=== PATIENT | female | born 1995 | race Caucasian/White ===

== ENCOUNTER 2019-05-11 13:13 | Emergency (ER) | payer OTHER ==
--- NOTE | 2019-05-11 13:26 | ER Report ---
History and Physical Time Seen By MD: 13:23 HPI/ROS CHIEF COMPLAINT: Shortness of breath, overheating, passing out HISTORY OF PRESENT ILLNESS: 23-year-old female patient presents to emergency room with complaint of shortness of breath, overheating and passing out. Patient states that this also start yesterday. She states she had several episodes of emesis yesterday. She states that she has not had any diarrhea. She states she was not able to eat anything yesterday, however today she's been able to keep fluids down. She states she been really lightheaded and she is moving around. She states she has had some shortness of breath. She said shortness breath with all activity, including lying down. Patient states that there is no possibility of , as she is currently in a homosexual relationship, she denies any control usage. Patient does have pain to bilateral size of the abdomen. REVIEW OF SYSTEMS: Respiratory: No cough, no dyspnea. Cardiovascular: No chest pain, no palpitations. Gastrointestinal: As noted above Musculoskeletal: No back pain. Allergies: Coded Allergies: amoxicillin (Verified Allergy, Severe, ANAPHYLAXIS, 05/11/19) Uncoded Allergies: Pencillins (Allergy, Severe, Anaphylaxis, 05/11/19) Home Meds Active Scripts Doxycycline Hyclate (DOXYCYCLINE HYCLATE) 100 Mg Tablet, 100 MG PO BID, #14 TAB Prov:JEANNINE SUERO 05/11/19 Past Medical/Surgical History Patient denies a pertinent medical or surgical history. Reviewed Nurses Notes: Yes Constitutional Vital Sign - Last 24 Hours 05/11/19 05/11/19 05/11/19 05/11/19 13:21 13:24 13:30 14:00 Temp 98.1 Pulse 57 Resp 16 B/P (MAP) 133/74 (93) 133/74 114/81 (92) 118/67 (84) Pulse Ox 95 O2 Delivery Room Air 05/11/19 05/11/19 05/11/19 05/11/19 14:13 14:30 14:35 15:00 Pulse 52 50 Resp 11 8 B/P (MAP) 114/52 (72) 108/55 (72) Pulse Ox 94 93 05/11/19 05/11/19 05/11/19 05/11/19 15:05 15:10 15:15 15:20 Pulse 53 54 52 56 Resp 14 18 25 16 Pulse Ox 94 94 94 97 05/11/19 05/11/19 05/11/19 05/11/19 15:25 15:30 15:35 15:40 Pulse 50 53 53 48 Resp 22 23 19 14 B/P (MAP) 85/37 (53) Pulse Ox 97 95 95 96 05/11/19 16:16 Pulse 85 Resp 16 B/P (MAP) 115/72 (86) Pulse Ox 92 O2 Delivery Room Air Physical Exam General Appearance: The patient is alert, has no immediate need for airway protection and no current signs of toxicity. Respiratory: Chest is non tender, lungs are clear to auscultation. Cardiac: regular rate and rhythm Gastrointestinal: Abdomen is soft and tender in the left lower quadrant and right upper quadrant, no masses, bowel sounds normal. Musculoskeletal: Neck: Neck is supple and non tender. Extremities have full range of motion and are non tender. Skin: No rashes or lesions. DIFFERENTIAL DIAGNOSIS: After history and physical exam differential diagnosis was considered for abdominal pain including but not limited to appendicitis, cholecystitis, gastritis and urinary tract infection. Included in the differential is dizziness including but not limited to peripheral and central causes of vertigo, orthostatic causes including dehydration, and blood loss. Medical Decision Making Data Points Result Diagram: 05/11/19 1338 05/11/19 1338 Laboratory Hematology Test 05/11/19 13:38 White Blood Count 6.0 k/uL (4.5-11.0) Red Blood Count 5.08 M/uL (4.17-5.56) Hemoglobin 14.4 g/dL (12.0-16.0) Hematocrit 41.2 % (34.0-47.0) Mean Corpuscular Volume 81.1 fL (80.0-96.0) Mean Corpuscular Hemoglobin 28.4 pg (26.0-33.0) Mean Corpuscular Hemoglobin Concent 35.0 g/dL (32.0-36.0) Red Cell Distribution Width 13.7 % (11.5-14.5) Platelet Count 337 K/uL (150-450) Mean Platelet Volume 8.1 fL (7.2-11.1) Neutrophils (%) (Auto) 45.7 % (39.4-72.5) Lymphocytes (%) (Auto) 43.4 % (17.6-49.6) Monocytes (%) (Auto) 7.4 % (4.1-12.4) Eosinophils (%) (Auto) 2.5 % (0.4-6.7) Basophils (%) (Auto) 1.0 % (0.3-1.4) Nucleated RBC Relative Count (auto) 0.1 /100WBC Neutrophils # (Auto) 2.8 K/uL (2.0-7.4) Lymphocytes # (Auto) 2.6 K/uL (1.3-3.6) Monocytes # (Auto) 0.4 K/uL (0.3-1.0) Eosinophils # (Auto) 0.1 K/uL (0.0-0.5) Basophils # (Auto) 0.1 K/uL (0.0-0.1) Nucleated RBC Absolute Count (auto) 0.01 K/uL Chemistry Test 05/11/19 13:38 Sodium Level 139 mmol/L (137-145) Potassium Level 3.7 mmol/L (3.5-5.0) Chloride Level 104 mmol/L (98-107) Carbon Dioxide Level 24 mmol/L (22-31) Blood Urea Nitrogen 17 mg/dl (7-18) Creatinine 0.90 mg/dl (0.52-1.04) Glomerular Filtration Rate Calc > 60.0 Random Glucose 97 mg/dl (75-110) Calcium Level 9.2 mg/dl (8.4-10.2) Total Bilirubin 0.7 mg/dl (0.2-1.3) Aspartate Amino Transf (AST/SGOT) 21 U/L (0-35) Alanine Aminotransferase (ALT/SGPT) 36 U/L (0-56) Alkaline Phosphatase 112 U/L (0-126) Troponin I < 0.012 ng/ml Total Protein 7.0 g/dl (6.3-8.2) Albumin 3.9 g/dl (3.5-5.0) Amylase Level 56 U/L (0-110) Lipase 62 U/L (23-300) Serology Test 05/11/19 13:38 Helicobacter pylori IgG Antibody Negative (NEGATIVE) Coagulation Test 05/11/19 13:38 D-Dimer Quantitative (PE/DVT) 0.29 ug/ml (0-0.50) Urinalysis Test 05/11/19 13:51 Urine Color Yellow Urine Clarity Slightly-cloudy Urine pH 5.0 pH (4.8-9.5) Urine Specific [place] 1.032 Urine Protein Negative mg/dL (NEGATIVE) Urine Glucose (UA) Negative mg/dL (NEGATIVE) Urine Ketones Negative mg/dL (NEGATIVE) Urine Blood Negative (NEGATIVE) Urine Nitrite Negative (NEGATIVE) Urine Bilirubin Negative (NEGATIVE) Urine Urobilinogen Negative mg/dL (0.2-1.9) Urine Leukocyte Esterase Small (NEGATIVE) Urine RBC 1 /HPF (0-2/HPF) Urine WBC 6 /HPF (0-5/HPF) Urine Squamous Epithelial Cells Many /LPF (</=FEW) Urine Bacteria Few /HPF (NONE-FEW) Urine Mucus Few /HPF (NONE-FEW) EKG/Imaging Imaging CT ABDOMEN PELVIS W/ CON HISTORY: Right upper quadrant and left upper quadrant abdominal pain TECHNIQUE: CT abdomen and pelvis with intravenous contrast. One of the following dose optimization techniques was utilized in the performance of this exam: Automated exposure control; adjustment of the mA and/or kV according to the patient's size; or use of an iterative reconstruction technique. Specific details can be referenced in the facility's radiology CT exam operational policy. CONTRAST: 75 mL Isovue-370 COMPARISON: None. FINDINGS: Visualized lung bases: Negative. Hepatobiliary: Negative. Spleen: Negative. Adrenals: Negative. Pancreas: Negative. Kidneys/: Small cyst within the left ovary measuring up to 2.1 cm. Otherwise negative. GI: Negative. No wall thickening or evidence for obstruction. Appendix is unremarkable. Vessels/spaces/nodes: Numerous nonspecific subcentimeter right lower quadrant lymph nodes. Bones/soft tissues: Negative. IMPRESSION: 1. No acute findings. 2. Numerous nonspecific subcentimeter right lower quadrant lymph nodes. Findings are likely of no clinical concern however could be related to mesenteric adenitis. Report Dictated By: Samson Randolph MD at 05/11/2019 3:13 PM Report E-Signed By: Samson Randolph MD at 05/11/2019 3:16 PM EXAMINATION: CT BRAIN NO CONTRAST CLINICAL INDICATION: Dizziness COMPARISON: No priors TECHNIQUE: Contiguous axial CT images of the brain were obtained without IV contrast. Sagittal and coronal reformatted images were also performed. One of the following dose optimization techniques was utilized in the performance of this exam: Automated exposure control; adjustment of the mA and/or kV according to the patient's size; or use of an iterative reconstruction technique. Specific details can be referenced in the facility's radiology CT exam operational policy. RESULT: BRAIN: The ventricles are symmetric and normal in size. The brain parenchyma appears normal. The shel[place]-white matter differentiation is preserved and the basilar cisterns are maintained. The cerebellum and brainstem appear normal. There is no mass, acute infarct, hemorrhage or shift of midline. VISUALIZED PARANASAL SINUSES & MASTOIDS: Moderate mucosal thickening of the left maxillary sinus. Mild thickening of left ethmoid air cells. Otherwise negative SKULL BASE & CRANIUM: Visualized osseous structures are intact. IMPRESSION: 1. No acute findings. 2. Paranasal sinus disease Report Dictated By: Samson Randolph MD at 05/11/2019 3:11 PM Report E-Signed By: Samson Randolph MD at 05/11/2019 3:13 PM ED Course/Re-evaluation ED Course Patient was admitted to an exam room, history and physical were obtained. Differential diagnoses were considered. On examination lungs are clear, heart is regular, abdomen soft and tender in the right upper quadrant and left lower quadrant. A CBC, CMP, amylase, lipase were done. The patient had a normal white count, auditory or normal and pancreatic enzymes are normal. I discussed the findings with the patient. At that time we did offer to do a CT scan of the abdomen to look for cause of her belly pain. We also did a CT scan of the head as she is been complaining of dizziness. CT scan of the abdomen showed no acute findings, there were some scattered enlarged lymph nodes which are nonspecific. In the right setting may be consistent with a mesenteric adenitis. The CT scan of the head however did not show no acute findings in the brain. Patient however did have right maxillary sinusitis. I discussed the findings with the patient. I believe that his underlying cause of her problems. However with her having a family history of CPVT, we will go ahead and do a Holter monitor. The diagnosis for that we will be dizziness. I anticipate that will be negative. The results will be sent to her primary care provider in [place]. Patient is return to emergency room if condition worsens. She verbalized understanding and agreement with plan. Decision to Disposition Date: May 11, 2019 Decision to Disposition Time: 15:28 Depart Departure Latest Vital Signs Vital Signs Date Time Temp Pulse Resp B/P (MAP) Pulse Ox O2 Delivery O2 Flow Rate FiO2 05/11/19 16:16 85 16 115/72 (86) 92 Room Air 05/11/19 13:24 98.1 Impression: Primary Impression: Sinusitis Additional Impression: Dizziness Condition: Improved Disposition: HOME OR SELF-CARE New Scripts Doxycycline Hyclate (DOXYCYCLINE HYCLATE) 100 Mg Tablet 100 MG PO BID, #14 TAB Prov: JEANNINE SUERO 05/11/19 Patient Instructions: Sinusitis (ED) Additional Instructions: Increase fluid intake. Get plenty of rest. Follow up with your primary care provider in the next week. Take medications as prescribed. Return to the ER if condition worsens. Take Tylenol or Ibuprofen as needed for any fevers or headaches. Problem Qualifiers Primary Impression: Sinusitis Sinusitis location: pansinusitis Chronicity: acute Recurrence: non- recurrent Qualified Codes: J01.40 - Acute pansinusitis, unspecified JEANNINE SUERO May 11, 2019 13:26
[2019-05-11] MEDS ORDERED: NS(*) 0.9% 1000 ML BAG 1,000 ML IV ONE (13:32)
[2019-05-11] MEDS ORDERED: ONDANSETRON 4 MG/2 ML VIAL IVP ONE (13:35)
[2019-05-11 13:51] LABS: PLATELET COUNT, AUTOMATED 337 K/uL (150-450)
--- NOTE | 2019-05-11 14:13 | EKG ---
FACILITY: [facility] PATIENT NAME: CECILY DUMONT : [id number] MR: [id number] V: [id number] EXAM DATE: ORDERING PHYSICIAN: JEANNINE SUERO TECHNOLOGIST: Test Reason : dizziness, vomiting Blood Pressure : / mmHG Vent. Rate : 057 BPM Atrial Rate : 057 BPM P-R Int : 134 ms QRS Dur : 116 ms QT Int : 444 ms P-R-T Axes : 049 006 013 degrees QTc Int : 432 ms Sinus bradycardia Otherwise normal ECG No previous ECGs available Confirmed by Santy Arroyo ([id number]) on 05/11/2019 4:13:10 PM Referred By: Confirmed By:Santy Aquino
[2019-05-11] MEDS ORDERED: IOPAMIDOL 76% 100 ML INFUS BTL 100 ML ONE (14:43)
--- NOTE | 2019-05-11 15:20 | RADIOLOGY IMAGING REPORT ---
FACILITY: [facility] PATIENT NAME: Sully Hopkins : 1995 MR: [id number] V: [id number] EXAM DATE: ORDERING PHYSICIAN: JEANNINE SUERO TECHNOLOGIST: Location: Patient: Sully Hopkins : 1995 Visit/Account:[id number] Date of Sevice: 05/11/2019 EXAMINATION: CT BRAIN NO CONTRAST CLINICAL INDICATION: Dizziness COMPARISON: No priors TECHNIQUE: Contiguous axial CT images of the brain were obtained without IV contrast. Sagittal and co new reformatted images were also performed. One of the following dose optimization techniques was utilized in the performance of this exam: Autom ated exposure control; adjustment of the mA and/or kV according to the patient's size; or use of an i terative reconstruction technique. Specific details can be referenced in the facility's radiology C T exam operational policy. RESULT: BRAIN: The ventricles are symmetric and normal in size. The brain parenchyma appears normal. The gra y-white matter differentiation is preserved and the basilar cisterns are maintained. The cerebellum a nd brainstem appear normal. There is no mass, acute infarct, hemorrhage or shift of midline. VISUALIZED PARANASAL SINUSES & MASTOIDS: Moderate mucosal thickening of the left maxillary sinus. Mi ld thickening of left ethmoid air cells. Otherwise negative SKULL BASE & CRANIUM: Visualized osseous structures are intact. IMPRESSION: 1. No acute findings. 2. Paranasal sinus disease Report Dictated By: Samson Randolph MD at 05/11/2019 3:11 PM Report E-Signed By: Samson Randolph MD at 05/11/2019 3:13 PM WSN:[email or web address]
--- NOTE | 2019-05-11 15:24 | RADIOLOGY IMAGING REPORT ---
FACILITY: [facility] PATIENT NAME: Sully Hopkins : 1995 MR: [id number] V: [id number] EXAM DATE: ORDERING PHYSICIAN: JEANNINE SUERO TECHNOLOGIST: Location: [facility] [place] Patient: Sully Hopkins : 1995 Visit/Account:[id number] Date of Sevice: 05/11/2019 CT ABDOMEN PELVIS W/ CON HISTORY: Right upper quadrant and left upper quadrant abdominal pain TECHNIQUE: CT abdomen and pelvis with intravenous contrast. One of the following dose optimization techniques was utilized in the performance of this exam: Autom ated exposure control; adjustment of the mA and/or kV according to the patient's size; or use of an i terative reconstruction technique. Specific details can be referenced in the facility's radiology C T exam operational policy. CONTRAST: 75 mL Isovue-370 COMPARISON: None. FINDINGS: Visualized lung bases: Negative. Hepatobiliary: Negative. Spleen: Negative. Adrenals: Negative. Pancreas: Negative. Kidneys/: Small cyst within the left ovary measuring up to 2.1 cm. Otherwise negative. GI: Negative. No wall thickening or evidence for obstruction. Appendix is unremarkable. Vessels/spaces/nodes: Numerous nonspecific subcentimeter right lower quadrant lymph nodes. Bones/soft tissues: Negative. IMPRESSION: 1. No acute findings. 2. Numerous nonspecific subcentimeter right lower quadrant lymph nodes. Findings are likely of no c linical concern however could be related to mesenteric adenitis. Report Dictated By: Samson Randolph MD at 05/11/2019 3:13 PM Report E-Signed By: Samson Randolph MD at 05/11/2019 3:16 PM WSN:[email or web address]
[2019-05-11] MEDS ORDERED: DOXY-179 PO (15:33)
[2019-05-11 16:16] VITALS: BP 115/72
--- NOTE | 2019-05-15 09:47 | RT HOLTER TEST ---
FACILITY: [facility] PATIENT NAME: CECILY DUMONT : [id number] MR: [id number] V: [id number] EXAM DATE: ORDERING PHYSICIAN: JEANNINE SUERO TECHNOLOGIST: JING Hook-up date: 2019-05-11 15:51:00 Duration: 24:00:00 Test Indications: DIZZINESS Medications: 609229 QRS complexes * Ventricular ectopics which represent % of total QRS comp. 11 Supraventricular ectopics which represent <1 % of total QRS comp. * Paced QRS complexes which represent % of total QRS comp. VENTRICULAR ECTOPY * Isolated * Bigeminal Cycles * Couplets * Runs * Beats in Runs * Beats LONGEST at * BPM at :: -- * Beats FASTEST at * BPM at :: -- SUPRAVENTRICULAR ECTOPY 11 Isolated 0 Couplets 0 Runs 0 Beats in Runs * Beats LONGEST at * BPM at :: -- * Beats FASTEST at * BPM at :: -- HEART RATES 40 MIN at 04:21:16 2019-05-12 72 AVG 158 MAX at 21:18:36 2019-05-11 LONGEST RR 1.784 secs at 04:21:09 2019-05-12 S-T LEVELS Channel 1 -12.800 mm MIN at 15:51:00 2019-05-11 -12.800 mm MAX at 15:51:00 2019-05-11 Channel 2 -12.800 mm MIN at 15:51:00 2019-05-11 -12.800 mm MAX at 15:51:00 2019-05-11 Channel 3 -12.800 mm MIN at 15:51:00 2019-05-11 -12.800 mm MAX at 15:51:00 2019-05-11 No ventricular ectopy was recorded. It appears there may be episodic competing ectopic atrial focus and possibly wandering atrial pacemak er (seen best on strip labeled "Max R-R"). No pauses of more than two (2) seconds were recorded. Confirmed by CARL YOUNG ([id number]) on 05/15/2019 9:44:22 AM Referred By: Overread By: CARL YOUNG
== END 2019-05-11 16:22 | disposition home or self-care (01) ==
LOC: ER 13:21
DX: J01.40 Acute pansinusitis, unspecified (principal); R42 Dizziness and giddiness
CPT/HCPCS: 70450; 74177; 81001; 82150; 83690; 84484; 85025; 85379; 86677; 93005; 93225; 96361; 96374; 99284; J2405; J7030; Q9967; 82040; 82247; 82310; 82374; 82435; 82565; 82947; 84075; 84132; 84155; 84295; 84450; 84460; 84520; 93226